=== PATIENT | male | born 1960 | race Caucasian/White ===

== ENCOUNTER 2016-10-09 05:42 | Day surgery (SDC) | payer OTHER ==
[~2016-10-09] VITALS: Ht 165.1 cm; Wt 77.3 kg
[2016-10-09] MEDS ORDERED: SODIUM CHLORIDE 0.9% 1,000 ML IV ONE ×2 (05:58→06:00)
[2016-10-09] MEDS ORDERED: BOTULINUM TOXIN TYPE A 100 UNITS/VIAL MISC ONE (06:45)
[2016-10-09 06:46] LABS: GLUCOSE,POINT OF CARE 120 MG/DL (70-110)
[2016-10-09] MEDS ORDERED: VALS40TA4 PO (07:15)
[2016-10-09] MEDS ORDERED: OXYC5CAP3 PO (07:15)
[2016-10-09] MEDS ORDERED: BENZ-26 PO (07:15)
[2016-10-09] MEDS ORDERED: ESZO3 PO (07:15)
[2016-10-09] MEDS ORDERED: CLOB60CR12 TP (07:15)
[2016-10-09] MEDS ORDERED: DOCU250C91 PO (07:15)
[2016-10-09] MEDS ORDERED: LEVE500T77 PO (07:15)
[2016-10-09] MEDS ORDERED: ONDA4 PO (07:15)
[2016-10-09] MEDS ORDERED: METO50 PO (07:15)
[2016-10-09] MEDS ORDERED: ATOR10TA84 PO (07:15)
[2016-10-09] MEDS ORDERED: GLIM2 PO (07:15)
[2016-10-09] MEDS ORDERED: SODIUM CHLORIDE 0.9% 10 ML ONE (07:29)
[2016-10-09] MEDS ORDERED: FentaNYL CITRATE-PF 100 MCG/2 ML VIAL IVP PRN (08:00)
[2016-10-09] MEDS ORDERED: MEPERIDINE-PF 25 MG/ML SYRINGE IVP PRN (08:00)
[2016-10-09] MEDS ORDERED: HYDROmorphone 2 MG/ML SYRINGE IVP PRN (08:00)
[2016-10-09] MEDS ORDERED: FentaNYL CITRATE-PF 100 MCG/2 ML VIAL IVP ONE (08:15)
[2016-10-09] MEDS ORDERED: OxyCODONE HCL/ACETAMINOPHEN 5-325 MG TABLET PO ONE (08:30)
[2016-10-09] MEDS ORDERED: BENZONATATE 100 MG CAPSULE PO ONE (08:30)
[2016-10-09] MEDS ORDERED: OxyCODONE HCL/ACETAMINOPHEN 5-325 MG TABLET ONE (08:52)
[2017-01-26] MEDS ORDERED: PROPOFOL 1% 20 ML VIAL IVP ONE (05:06)
== END 2016-10-09 10:10 | disposition home or self-care (01) ==
LOC: SURGERY 05:42
PROVIDERS: ATTEND Specialist
DX: K29.50 Unspecified chronic gastritis without bleeding (principal); K22.0 Achalasia of cardia; K21.9 Gastro-esophageal reflux disease without esophagitis; I10 Essential (primary) hypertension; E11.9 Type 2 diabetes mellitus without complications; D49.6 Neoplasm of unspecified behavior of brain; M54.9 Dorsalgia, unspecified; M54.30 Sciatica, unspecified side; Z90.49 Acquired absence of other specified parts of digestive tract
CPT/HCPCS: 43236; 43239; 82962; 88305; 88312; J0585; J3010; J7030